=== PATIENT | female | born 1985 | race Caucasian/White ===

== ENCOUNTER → 2016-10-03 | Outpatient (CLI) | payer BC ==
[~2016-10-03] VITALS: Ht 162.6 cm; Wt 142.9 kg
[~2016-10-03] MED LIST: CALCIUM 500 MG1 EAC2 PO; MAGNESIUM PO; VITAMEDMD REDI1.4 MG PO; VITAMIN E400 UNIT PO; ZYRTEC10 M3 PO
== END | disposition home or self-care (01) ==
LOC: AMB
DX: Z12.11 Encounter for screening for malignant neoplasm of colon (principal); Z80.0 Family history of malignant neoplasm of digestive organs; K63.5 Polyp of colon; Z88.5 Allergy status to narcotic agent; Z91.018 Allergy to other foods
CPT/HCPCS: 88305; J2250; J3010